=== PATIENT | male | born 2000 | race Caucasian/White ===

== ENCOUNTER 2020-05-29 20:14 | Emergency (ER) | payer SELFPAY | END 2020-05-30 00:15 | disposition home or self-care (01) | LOC: ER1 20:14 | DX: S97.02XA Crushing injury of left ankle, initial encounter (principal); S97.82XA Crushing injury of left foot, initial encounter; W23.1XXA Caught, crushed, jammed, or pinched between stationary objects, initial encounter; Y92.89 Other specified places as the place of occurrence of the external cause; Y99.0 Civilian activity done for income or pay | CPT/HCPCS: 73610; 73630; 99283 ==

== ENCOUNTER 2021-09-19 02:45 | Emergency (ER) | payer BC ==
[2021-09-19 03:18] LABS: HEMOGLOBIN 13.6 gm/dl (14.0-17.5); RED BLOOD COUNT 4.68 M/UL (4.20-5.50); WHITE BLOOD COUNT 10.8 K/UL (4.5-11.0)
[2021-09-19 03:35] LABS: BUN/CREATININE RATIO 17 (0-10)
== END 2021-09-19 03:44 | disposition home or self-care (01) ==
LOC: ER1 02:45
PROVIDERS: Physician Assistant
DX: F10.129 Alcohol abuse with intoxication, unspecified (principal); Y90.6 Blood alcohol level of 120-199 mg/100 ml
CPT/HCPCS: 80053; 85025; 93005; 99284; G0480